=== PATIENT | male | born 1990 | race Caucasian/White ===

== ENCOUNTER 2018-10-06 01:11 | Emergency (ER) | payer SELFPAY ==
[~2018-10-06] VITALS: Ht 157.5 cm; Wt 65.9 kg
[2018-10-06 01:15] VITALS: BP 166/105
== END 2018-10-06 01:55 | disposition left against medical advice (07) ==
LOC: ER 01:11
DX: Z53.21 Procedure and treatment not carried out due to patient leaving prior to being seen by health care provider (principal)